=== PATIENT | male | born 1985 | race Hispanic/Latino ===

== ENCOUNTER → 2024-07-09 | Outpatient (CLI) | payer OTHER ==
[~2024-07-09] VITALS: Ht 22.9 cm; Wt 196.7 kg
--- NOTE | 2024-07-09 16:54 | NUR ---
BARIATRIC PRE-OP VISIT VISIT 1 OF 1 Wt: 433.6 lbs DOS: 07/09/24 Pt reported he takes blood pressure medication, leg pain medication, is taking ozempic for wt loss, goes to gym 4x per week for wt lifting and cardio for 1 hour and 30 mins, drinks carbonated beverages, plans to get the sleeve, had several questions regarding protein intake, CHO intake, simple CHO and complex CHO, sweeteners, BMR, water intake, supplements. RD answered all questions, Pt verbalized understanding. RD reviewed educational material for pre-op and post-op diet recommendations with detailed phases of diet post-op. Pt was informed of importance of lifelong vitamin/mineral supplementation, choosing protein first during meals (pt was educated on higher protein requirements), choosing low calorie, sugar free, carbonated free and caffeine beverages. RD also informed pt on lifelong commitment to exercise and dietary recommendations for optimal success post surgery. RD encouraged getting blood work every 3 to 6 months, including B-vitamins, Pt verbalized understanding. RD informed Pt on moving around after procedure to prevent DVT, Pt verbalized understanding. Pt was encouraged to contact RD as questions arise and to attend support groups. RD provided protein supplement recommendations along with Bariatric Vitamin recommendations via graphics to patient. Pt with several questions, all of which were answered. Fair compliance suspected. Pt will benefit from outpatient bariatric dietitian follow up post procedure. Pt to follow up with PCP for labs. Thank you for this visit. Addendum: 07/09/24 at [address] Amended: Links added.
== END | disposition home or self-care (01) ==
LOC: DTH 14:50
PROVIDERS: ATTEND Surgery
DX: E66.01 Morbid (severe) obesity due to excess calories (principal); G47.33 Obstructive sleep apnea (adult) (pediatric); E66.3 Overweight; K21.9 Gastro-esophageal reflux disease without esophagitis; I10 Essential (primary) hypertension; Z68.44 Body mass index [BMI] 60.0-69.9, adult; Z71.3 Dietary counseling and surveillance
CPT/HCPCS: 97802